=== PATIENT | male | born 1960 | race Two or more races ===

== ENCOUNTER 2022-12-11 23:14 | Emergency (ER) | payer MEDICAID, OTHER ==
[~2022-12-11] VITALS: Ht 177.8 cm; Wt 72.7 kg
[2022-12-11 23:30] VITALS: PULSE 71; RESP 15; O2SAT 98
[2022-12-11 23:38] LABS: Basophils # (auto) 0 10 ^3/uL (0-0.2); Basophils % (auto) 0.4 % (0.0-2.0); Hematocrit 42.6 % (41.0-53.0); Lymphocytes # (auto) 2.5 10 ^3/uL (0.4-5.4)
[2022-12-11 23:39] LABS: Eosinophils # (auto) 0.2 10 ^3/uL (0-0.8); Eosinophils % (auto) 1.8 % (0.0-7.0); Lymphocytes % (auto) 27.9 % (10.0-50.0); Mean Corpuscular Hemoglobin 35.2 pg (28.0-32.0); Mean Corpuscular Hgb Conc. 35.1 g/dL (32.0-36.0); Mean Corpuscular Volume 100.3 fL (80.0-100.0); Monocytes # (auto) 0.7 10 ^3/uL (0-1.3); Monocytes % (auto) 8.1 % (0.0-12.0); Neutrophils # (auto) 5.6 10 ^3/uL (1.6-8.6); Neutrophils % (auto) 61.8 % (37.0-80.0); Red Blood Cells 4.25 10^6/uL (4.5-5.90); Red Cell Distribution Width 13.8 % (11.8-14.3)
[2022-12-11 23:57] LABS: Alanine Aminotransferase 17 U/L (7-40); Albumin 3.8 g/dL (3.2-4.8); Alkaline Phosphatase 85 U/L (46-116); Anion Gap 5 (5-15); Aspartate Aminotransferase 17 U/L (13-40); BUN/Creatinine Ratio 12.1 (10.0-20.0); Blood Alcohol 3.1 mg/dL (<10); Blood Urea Nitrogen 15 mg/dL (9-23); Calcium 8.5 mg/dL (8.7-10.4); Carbon Dioxide 26 mmol/L (20-30); Chloride 109 mmol/L (98-107); Glucose 188 mg/dL (74-106); Sodium 140 mmol/L (136-145)
[2022-12-11 23:58] LABS: Acetaminophen < 2.0 UG/ML (10.0-20.0); Bilirubin, Total 0.4 mg/dL (0.2-1.0); Salicylate < 3.0 mg/dL (2.8-20.0); Total Protein 6.4 g/dL (5.7-8.2)
[2022-12-12] MEDS ORDERED: SODIUM CHLORIDE 0.9% 1,000 ML IV ONE (00:45)
[2022-12-12] MEDS ORDERED: FAMOTIDINE (10MG/ML) 2ML VL IV ONE (01:00)
[2022-12-12] MEDS ORDERED: ONDANSETRON HCL 4 MG/2 ML VIAL IV ONE (01:00)
[2022-12-12 03:45] LABS: Amphetamine Screen, Urine Neg (NEGATIVE); Benzodiazephine Screen, Urine Neg (NEGATIVE); Cocaine Screen, Urine Neg (NEGATIVE)
[2022-12-12 03:46] LABS: Cannabinoid Screen, Urine Pos (NEGATIVE); Opiate Scree,Urine Neg (NEGATIVE); Phencyclidine Screen, Urine Neg (NEGATIVE)
[2022-12-12 03:53] LABS: Barbiturate Scree,Urine Neg (NEGATIVE)
[2022-12-12 05:59] VITALS: BP 118/57; PULSE 76; RESP 11; TEMP 98.9; O2SAT 94
== END 2022-12-12 06:04 | disposition home or self-care (01) ==
LOC: ER 23:14 → EDBD 23:14 → ER 12-12 06:01
DX: T65.91XA Toxic effect of unspecified substance, accidental (unintentional), initial encounter (principal); R11.2 Nausea with vomiting, unspecified; R51.9 Headache, unspecified; R06.02 Shortness of breath; R07.9 Chest pain, unspecified; Z79.899 Other long term (current) drug therapy; Y92.89 Other specified places as the place of occurrence of the external cause
CPT/HCPCS: 36415; 70450; 71045; 80053; 80307; 80320; 80329; 81001; 82962; 83735; 83880; 84484; 85025; 93005; 96360; 99285; J7030